=== PATIENT | male | born 1985 | race Caucasian/White ===

== ENCOUNTER 2022-02-21 08:27 | Emergency (ER) | payer BC | END 2022-02-21 11:44 | disposition home or self-care (01) | LOC: JD.ED 08:27 | DX: R10.11 Right upper quadrant pain (principal); I10 Essential (primary) hypertension; Z91.013 Allergy to seafood; Z87.891 Personal history of nicotine dependence | CPT/HCPCS: 36415; 71045; 71045-26; 80053; 82248; 83690; 84484; 85025; 93005; 93010; 99283; 99284-25 ==

== ENCOUNTER 2022-07-03 10:59 | Emergency (ER) | payer BC ==
[2022-07-03] MEDS ORDERED: Diphtheria,Pertussis(Acell),Tetanus Vaccine 0.5 ML Syringe IM ONE (13:01)
== END 2022-07-03 13:20 | disposition home or self-care (01) ==
LOC: JD.ED 10:59
DX: S61.217A Laceration without foreign body of left little finger without damage to nail, initial encounter (principal); I10 Essential (primary) hypertension; Z23 Encounter for immunization; Z91.013 Allergy to seafood; Z79.899 Other long term (current) drug therapy
CPT/HCPCS: 90471; 90715; 99282-25